=== PATIENT | male | born 1955 | race Two or more races ===

== ENCOUNTER 2025-07-19 09:22 | Emergency (ER) | payer SELFPAY ==
[2025-07-19 09:27] VITALS: BP 162/79; PULSE 91; RESP 18; TEMP 36.7; O2SAT 98; BMI 31.1
--- NOTE | 2025-07-19 09:53 | ED_ITS ---
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, Related Data Allergies Allergy/AdvReac Type Severity Reaction Status Date / Time No Known Allergies Allergy Verified 07/19/25 09:29 Review of Systems Constitutional: Constitutional: Reports as per HPI Physical Exam Vital Signs: Vital Signs: Last Vital Signs Temp 98.0 F 07/19/25 09:27 Pulse 91 07/19/25 09:27 Resp 18 07/19/25 09:27 BP 162/79 H 07/19/25 09:27 Pulse Ox 98 07/19/25 09:27 O2 Del Method Room Air 07/19/25 09:27 BMI result Body Mass Index 31.1 Const: Other: * Gen: ?Overall well-appearing patient * HEENT: Boggy nasal mucosa with likely bleeding from a right Montes, no bleeding posterior oropharyngeal * Neck: Supple, no LAD * Resp: ?No wheezing rales rhonchi no stridor moving air well * Neuro: ?Alert and oriented x3, moving upper and lower extremities symmetrically, no obvious facial asymmetry noted Medical Decision Making Medical Decision Making [facility] Narrative: Patient is presenting with epistaxis, evaluated him bedside, he was not bleeding anymore, my did clear the clots, applied dexamethasone, re-evaluated, it appears that he likely had bleeding from the right Montes, possibly digital trauma, silver nitrate cautery very gentle over bilateral anterior septum we will observe, if still not bleeding we will discharge with return precautions Differential Diagnosis Differential Diagnoses: The differential diagnosis associated with the presentation includes (See above) Procedures Epistaxis Control Time Out Performed: Yes Nostril: Yes bilateral Nose prepped with: Yes oxymetazoline Direct inspection method: Yes nasal speculum Clots removed by: Yes blowing nose Epistaxis treatment: Yes silver nitrate cautery Results of treatment: Yes bleeding controlled Complications: Yes none Discharge Plan Discharge Clinical Impression: Epistaxis Instructions: Nosebleed (ED) Additional Instructions: If bleeding restarts, blow your nose, to clear the clots 2 sprays each nostril with Afrin, and apply nose clamp on, removing 15 minutes if bleeding persists repeat above step once more, if 15 minutes later your still bleeding come back to the ER Apply small amounts of Vaseline to each nostril every day to keep the area moist with a Q-tip or pinky, do not blow your nose if you need to clear it use nasal saline spray Print Language: Armenian
[2025-07-19 10:00] VITALS: BP 154/83; PULSE 67; RESP 17; TEMP 36.6; O2SAT 97
[2025-07-19] MEDS: Oxymetazoline HCl 0.05 % Nasal 15 ML SPRAY 2 SPRAY NOSTRIL-B (10:33)
[2025-07-19] MEDS: Silver Nitrate Applicator STICK..EA. 2 APPL TOPICAL (10:33)
--- OUTSIDE RECORDS SUMMARY | 2025-07-19 10:53 | XMS_ITS | Encounter Summary ---
Author Organization [facility] Address [address] [place] [address] Care Team Providers Care Acoustic Engineer Name Role Phone Unavailable Primary Care Provider Unavailabl e Encounter Details Date Type Department Care Team (Late st Contact Info) Description 03/20/2022 Dental Interim Note [facility] [address] [place] [address] Felisha Elder, DDS [address] [place], [place] [id number] Social History Tobacco Use Types Packs/Day Years Used Date Smoking Tobacco: Never Smokeless Tobacco: Never Social Connections Answer Date Recorded Social Connections and Isolation 0 03/17/2022 Financial Resource Strain Answer Date R ecorded Financial Resource Strain 0 2021 Stress Answer Date Recorded Stress 0 03/17/2022 Physical Activity Answer Date Recorded Physical Activity 0 03/17/2022 Food Insecurity Answer Date Recorded Food 0 03/17/2022 Transportation Needs Answer Date Record ed Transportation 0 03/17/2022 Housing Stability Answer Date Recorded Housing 0 03/17/2022 Safety and Environment Answer Date Chauncey rded Safety 0 03/17/2022 Utilities Answer Date Recorded Utilities 0 03/17/2022 Employment Answer Date Recorded Employment 0 03/17/2022 Sex and Gender Information Value Date Recorded Sex Assigned at Male 03/20/2022 8:09 AM PDT Legal Sex Male 11:02 AM PST Gender Identity Male 03/20/2022 7:09 AM PDT Sexual Orientation Straight 03/20/2022 7: 09 AM PDT COVID-19 Exposure Response Date Recorded In the last 10 days, have yo u been in contact with someone who was confirmed or suspected to have Coronavirus/COVID-19? No / Unsure 03/20/2022 9:03 AM EDT documented as of this encounter Plan of Treatment Not on file documented as of this encounter Visit Diagnoses Not on filedocumented in this encounter
--- OUTSIDE RECORDS SUMMARY | 2025-07-19 10:53 | XMS_ITS | Clinical Summary ---
Author Organization [facility] Address [address] [place] [address] Care Team Providers Care Rear Admiral Name Role Phone Unavailable Primary Care Provider Unavailabl e Source Comments PLEASE NOTE, if this patient is a minor, it may be UNLAWFUL to discuss sensitive information that is contained in these records (such as FAMILY PLANNING, MENTAL HEALTH or SUBSTANCE ABUSE) with the minor patient's parent or other person without the patient's specific authorization.[facility] Allergies No known active allergies Medications No known medications Active Problems No known active problems Social History Tobacco Use Types Packs/Day Years Used Date Smoking Tobacco: Never Smokeless Tobacco: Never Social Connections Answer Date Recorded Connectedness 0 08/08/2024 Financial Resource Strain Answer Date R ecorded Financial Resource Strain 0 2021 Stress Answer Date Recorded Stress 0 03/17/2022 Physical Activity Answer Date Recorded Physical Activity 0 03/17/2022 Food Insecurity Answer Date Recorded Food 0 08/16/2024 Transportation Needs Answer Date Record ed Transportation 0 03/17/2022 Housing Stability Answer Date Recorded Housing 0 03/17/2022 Safety and Environment Answer Date Chauncey rded Safety 0 03/17/2022 Utilities Answer Date Recorded Utilities 0 03/17/2022 Employment Answer Date Recorded Stress 0 08/08/2024 Sex and Gender Information Value Date Recorded Sex Assigned at Male 03/20/2022 8:09 AM PDT Legal Sex Male 11:02 AM PST Gender Identity Male 03/20/2022 7:09 AM PDT Sexual Orientation Straight 03/20/2022 7: 09 AM PDT Last Filed Vital Signs Vital Sign Reading Time Taken Comments Blood Pressure 155/94 03/20/2022 9:55 AM EDT Pulse 52 03/20/2022 9:55 AM EDT Temperature 36.1 C (97 F) 03/20/2022 9:55 AM EDT Respiratory Rate - - Oxygen Saturation - - Inhaled Oxygen Concentration - - Weight - - Height - - Body Mass Index - - Plan of Treatment Not on file Insurance [facility]
--- OUTSIDE RECORDS SUMMARY | 2025-07-19 10:53 | XMS_ITS | Encounter Summary ---
Author Organization [facility] Address [address] [place] [address] Care Team Providers Care Flavor Maker Name Role Phone Unavailable Primary Care Provider Unavailabl e Encounter Details Date Type Department Care Team (Late st Contact Info) Description 03/17/2022 Dental Interim Note [facility] [address] [place] [address] JaelFelisha teresa, DDS [address] [place], [place] [phone] Social History Tobacco Use Types Packs/Day Years Used Date Smoking Tobacco: Never Assessed Social Connections Answer Date Recorded Social Connections [...]
[2025-07-19 11:16] VITALS: BP 154/83; PULSE 67; RESP 17; TEMP 36.6; O2SAT 97
== END 2025-07-19 12:21 | disposition home or self-care (01) ==
PROVIDERS: Emergency Provider Emergency Medicine
DX: R04.0 Epistaxis (principal)
CPT/HCPCS: 30901; 99284

== ENCOUNTER 2025-07-20 07:16 | Emergency (ER) | payer SELFPAY ==
[2025-07-20 07:26] VITALS: PULSE 98; RESP 18; TEMP 36; O2SAT 98; BMI 31.1
--- OUTSIDE RECORDS SUMMARY | 2025-07-20 07:41 | XMS_ITS | Encounter Summary ---
Author Organization [facility] Address [address] [place] [address] Care Team Providers Care Twenty One Dealer Name Role Phone Unavailable Primary Care Provider Unavailabl e Encounter Details Date Type Department Care Team (Late st Contact Info) Description 03/20/2022 Dental Interim Note [facility] [address] [place] [address] Felisha Elder, DDS [address] [place], [place] [phone] Social History Tobacco Use Types Packs/Day Years [...]
--- OUTSIDE RECORDS SUMMARY | 2025-07-20 07:41 | XMS_ITS | Encounter Summary ---
Author Organization [facility] Address [address] [place] [address] Care Team Providers Care Inventory Control Clerk Name Role Phone Unavailable Primary Care Provider Unavailabl e Encounter Details Date Type Department Care Team (Late st Contact Info) Description 03/17/2022 Dental Interim Note [facility] [address] [place] [address] JaelFelisha teresa, DDS [address] [place], [place] [phone] Social History Tobacco Use Types Packs/Day Years [...]
--- OUTSIDE RECORDS SUMMARY | 2025-07-20 07:41 | XMS_ITS | Clinical Summary ---
Author Organization [facility] Address [address] [place] [address] Care Team Providers Care Product Applications Engineer Name Role Phone Unavailable Primary Care [...] Treatment Not on file Insurance [facility]
[2025-07-20 08:00] VITALS: BP 157/85; PULSE 60; RESP 17; TEMP 36.9; O2SAT 98
--- NOTE | 2025-07-20 08:01 | ED_ITS ---
History of Present Illness General Chief Complaint: Epistaxis Stated Complaint: nosebleed Time Seen by Provider: 07/20/25 07:31 Source: patient Mode of arrival: ambulatory Limitations: no limitations History of Present Illness ED Provider: [facility] Narrative: Patient was seen by me yesterday, that point he had epistaxis difficult to tell from left to right nostril, both nostrils were cauterized, presented with a bleeding from left Montes, he is not on blood thinners. Related Data Allergies Allergy/AdvReac Type Severity Reaction Status Date / Time No Known Allergies Allergy Verified 07/20/25 07:34 Review of Systems Constitutional: Constitutional: Reports as per [facility] Social History Social History (System 07/19/25 @ 10:41 by Ghazal Concepcion) Advance Directives: Yes Advance Directives on File: Yes Advance Directives Date on File: 07/19/25 Physical Exam Vital Signs: Vital Signs: Last Vital Signs Temp 96.8 F 07/20/25 07:26 Pulse 98 07/20/25 07:26 Resp 18 07/20/25 07:26 Pulse Ox 98 07/20/25 07:26 O2 Del Method Room Air 07/20/25 07:26 BMI result Body Mass Index 31.1 Const: Other: * Gen: ?Overall well-appearing patient * HEENT: Active bleeding from left Montes, protecting his airway * Resp: ?No wheezing rales rhonchi no stridor moving air well * Neuro: ?Alert and oriented x3, moving upper and lower extremities symmetrically, no obvious facial asymmetry noted Medical Decision Making Medical Decision Making [facility] Narrative: Patient re-presented with left Naris bleeding status post cauterization yesterday, not on blood thinners, bleeding controlled with 7.5 cm rapid rhino insertion, I will have the patient come back and see me on Tuesday as this is a long weekend and unlikely the LC any ENT to attempt and take out the nasal tampon, as I am going to see the patient in next 48 hours I am not starting him on oral antibiotics to prevent TSS, which is no longer practice 08:13 after the rapid rhino was inserted I re-examined the patient and there was no bleeding in the oropharyngeal area to suspect posterior bleed Differential Diagnosis Differential Diagnoses: The differential diagnosis associated with the presentation includes (Anterior epistaxis, posterior epistaxis, foreign body, coagulopathy, anemia) Procedures Epistaxis Control Time Out Performed: Yes Nostril: Yes left Direct inspection method: Yes nasal rhinoscope Clots removed by: Yes blowing nose Epistaxis treatment: Yes nasal tampon Results of treatment: Yes bleeding controlled Complications: Yes none Discharge Plan Discharge Clinical Impression: Epistaxis Patient Disposition: Home, Self-Care Instructions: Nosebleed (ED) Additional Instructions: Please come back on Tuesday to see me for trying to remove the rapid rhino in the left naris, and as discussed if he bleeds at home add up to 5 mL of fluid into the device but no more than 5ml you can start with 2 mL at a time, and if he bleeds despite that come back to the ER, small amount of oozing in the front is okay you can just dab that with a napkin, bleeding in the back of the throat and coughing up blood continuously that is not normal and you should come back for that Print Language: Austrian
[2025-07-20 08:15] VITALS: BP 157/85; PULSE 60; RESP 17; TEMP 36.9; O2SAT 98
== END 2025-07-20 08:20 | disposition home or self-care (01) ==
PROVIDERS: Emergency Provider Emergency Medicine
DX: R04.0 Epistaxis (principal)
CPT/HCPCS: 30901; 99283; 99284